=== PATIENT | male | born 1995 | race African-American/Black ===

== ENCOUNTER → 2019-06-16 10:39 | Day surgery (SDC) | payer OTHER ==
[~2019-06-16 10:39] MED LIST: Atracurium* 10 MG/ML 10 ML VIAL ONE; Buffered Lidocaine 1% SYRIN* 1 ML/SYRINGE INTRADERM ONE; Dexamethasone IV* 4 MG/ML 1 ML (4 MG) IV SLOW PU ONE; Dexamethasone IV* 4 MG/ML 1 ML (4 MG) ONE; Famotidine IV* 10 MG/ML 2 ML (20 mg) IV ONE; Famotidine IV* 10 MG/ML 2 ML (20 mg) ONE; Lactated Ringers 1000 ML Bag* 1,000 ML IV SCH; Midazolam* 1 MG/ML 5 ML VIAL (5 MG) ONE; Ondansetron INJ* 2 MG/ML VIAL ONE; Propofol* 10 MG/ML 20 ML BTL ONE; ROPIVACAINE 5 MG/ML 30 ML BTL (0.5%) ONE; Ropivacaine 0.2% * 2 MG/ML VIAL ONE; ceFAZolin 2 GM PREMIX in ORs 2 GM/50 ML BAG ONE; fentaNYL* 50 MCG/ML 2 ML VIAL (100 MCG VIAL) ONE
[2019-06-16 16:29] VITALS: BP 133/91
--- NOTE | 2019-06-20 15:49 | OP ---
OPERATIVE REPORT: DATE OF OPERATION: 06/18/19 DATE OF : 89 SURGEON: Geri Novak MD SMOKE TESTER: CHRISTINE Sanon An nurse's assistant was needed for the entirety of the case to help with positioning, retraction and was uti lized throughout all portions of the case. ANESTHESIOLOGIST: Dr. Banks. ANESTHESIA: General interscalene block. PRE-OP DIAGNOSES: 1. Left shoulder recurrent instability. 2. Superior labral tearing. POST-OP DIAGNOSES: 1. Left shoulder recurrent instability and some chondrosis. 2. Superior labral tearing. OPERATIVE PROCEDURE: Left shoulder arthroscopy with: 1. Extensive glenohumeral debridement including chondroplasty. 2. Anterior labral repair. 3. Subpectoral biceps tenodesis. IMPLANTS USED: One 1.8 Q-Fix, 2 Bioraptors, and one 2.8 Q-Fix. COMPLICATIONS: None. ESTIMATED BLOOD LOSS: Minimal. INDICATIONS: Mark Haque is a 24-year-old male with persistent left shoulder pain. He has had multipl e episodes of instability. He failed conservative management. He has elected to proceed with surgica l treatment. Risks and benefits included, but not limited to, bleeding; infection; damage to nerves, vessels, surrounding structures; wound nonhealing; persistent pain; need for further surgery; scarri ng; stiffness; incomplete relief of symptoms; risks of anesthesia. He has elected to proceed. DESCRIPTION OF PROCEDURE: The patient was greeted in the preoperative area by the attending surgeon. Correct extremity was marked. Consent was confirmed. The patient underwent interscalene nerve blo ck, after which he was brought to the operating suite where he was placed in supine position on the o perating table and underwent general anesthesia and endotracheal intubation, after which he was posit ioned in the right lateral decubitus position with all bony prominences padded and secured with a peg board. An axillary roll was placed. The left shoulder was then prepped and draped in the usual ster ile fashion beginning with chlorhexidine soap, scrub, and alcohol wipe and a final prep with ChloraPr ep. After appropriate surgical pause indicating site, side, procedure, administration of antibiotics, the standard posterolateral portal was made sharply with an 11 blade. Scope was introduced into the emelyn nt. The joint was examined. There was abundant synovitis that was present. There was also evidence of an anterior labral tear. The head was subluxed somewhat. He had grade 2 changes to the glenohum eral joint with some unstable flaps. The low anterior portal was made using an 18-gauge needle for l ocalization. The large 8.5 mm cannula was placed anteriorly. A second cannula was placed more super iorly in the interval. The biceps was then tenotomized for lateral tenodesis. The patient had a SLA P type 2 tear. The subscap was intact. The undersurface of the supraspinatus was intact. The shave r was used to debride back any of the unstable chondral flaps. Attention was directed to the labral repair. The labrum was elevated carefully from the 2 o'clock to the 6 o'clock position. The quality of the tissue was good. The red ball rasp and shaver blade were used to create a bony bleeding bed. Once this was done, anchor placement began first with a curved 1.8 mm Q-Fix was just placed more inferiorly between the 5:30 and 6 o'clock position with excellent p urchase. Sutures were then passed in a horizontal mattress configuration and then tied down using ar throscopic knot tying technique and some of the tension was released from the shoulder. Lateral madelin was released. A second anchor was placed at around the 4:30 position. This was a Bioraptor, was pl aced with excellent purchase, passed in a horizontal mattress configuration, again tied down. A thir d anchor was placed at around the 3 o'clock position and passed in a horizontal mattress configuratio n. This was also tied down using arthroscopic knot-tying technique. This helped to restore the labr um and eliminate the drive-through sign. The head was found to be well seated and labrum nicely zay red. Final images were obtained and attention was directed to the biceps. With the airplaned to the left side, the anterior aspect of the shoulder was prepped again using Chlo raPrep. The 15 blade was used to make an incision in line with biceps tendon. The soft tissues were carefully dissected to expose the inferior aspect of the pec, which was elevated. The biceps was br ought through the wound and the biceps found to have abundant tenosynovitis. The groove was then pre pared in the usual fashion including electrocautery device, red ball rasp, and osteotome. Q-Fix was then drilled unicortically and deployed with excellent purchase. The suture was then passed in a Mas on-Manny type configuration approximately 1 cm proximal to the musculotendinous junction. The excess stump was excised. The biceps was then shuttled back to the wound and tied down. The wounds were t hen copiously irrigated with sterile saline. The anterior wound was closed in layers with 3-0 Monocr yl. The portals were closed with 3-0 nylon in interrupted fashion. Sterile dressings were applied. A Cryo/Cuff and an UltraSling sling were applied. He was awoken from anesthesia and transferred to PACU in stable condition. POSTOPERATIVE PLAN: He will be nonweightbearing and in the sling for 4 weeks. Discharged on pain med ication. DVT prophylaxis was considered but deferred due to no pervious personal or family history. I will see the patient back this as he is leaving town. [id number]/[facility] #: [id number]
== END | disposition home or self-care (01) ==
LOC: OR 10:39
PROVIDERS: ATTEND Orthopaedic Surgery
DX: M24.412 Recurrent dislocation, left shoulder (principal); M25.311 Other instability, right shoulder; G89.18 Other acute postprocedural pain
CPT/HCPCS: C1776; J0690; J1100; J2250; J2405; J2704; J2795; J3010